=== PATIENT | female | born 1980 | race Caucasian/White ===

== ENCOUNTER 2021-02-12 17:13 | Emergency (ER) | payer OTHER ==
[~2021-02-12 17:13] MED LIST: KEFLEX CAP 500500 MG PO; LEVAQUIN500 MG PO
[2021-02-12] MEDS ORDERED: IBUPROFEN800 MG PO (18:25)
[2021-02-12] MEDS ORDERED: HYDROCODON-ACE1 EAC3 PO (18:25)
== END 2021-02-12 19:00 | disposition home or self-care (01) ==
LOC: ER1 17:13
DX: S82.831A Other fracture of upper and lower end of right fibula, initial encounter for closed fracture (principal); W22.8XXA Striking against or struck by other objects, initial encounter
CPT/HCPCS: 73590; 73610; 99283

== ENCOUNTER 2022-02-23 11:24 | Emergency (ER) | payer OTHER ==
[~2022-02-23 11:24] MED LIST changes: +HYDROCODON-ACE1 EAC3 PO; +IBUPROFEN800 MG PO
[2022-02-23] MEDS ORDERED: ERYTHROMYCIN O3.5 GM OS (11:54)
== END 2022-02-23 12:08 | disposition home or self-care (01) ==
LOC: ER1 11:24
DX: H10.9 Unspecified conjunctivitis (principal); F17.210 Nicotine dependence, cigarettes, uncomplicated
CPT/HCPCS: 99282